=== PATIENT | female | born 1995 | race African-American/Black ===

== ENCOUNTER 2019-07-13 21:16 | Emergency (ER) | payer BC ==
[~2019-07-13] VITALS: Ht 175.3 cm; Wt 140.6 kg
[~2019-07-13 21:16] MED LIST: FLAGYL500 MG PO
[2019-07-13] MEDS ORDERED: [UNRECOGNIZED DRUG - REMARK] (21:37)
[2019-07-13] MEDS ORDERED: IBUPROFEN 600600 M1 PO (22:38)
[2019-07-13 23:30] VITALS: BP 156/93
== END 2019-07-13 23:22 | disposition home or self-care (01) ==
LOC: ER 21:16
DX: S93.491A Sprain of other ligament of right ankle, initial encounter (principal); J45.909 Unspecified asthma, uncomplicated; W01.0XXA Fall on same level from slipping, tripping and stumbling without subsequent striking against object, initial encounter; Y92.410 Unspecified street and highway as the place of occurrence of the external cause; Y93.89 Activity, other specified; Y99.8 Other external cause status

== ENCOUNTER 2020-11-19 09:38 | Emergency (ER) | payer BC ==
[~2020-11-19] VITALS: Ht 162.6 cm; Wt 136.1 kg
[~2020-11-19 09:38] MED LIST changes: +IBUPROFEN 600600 M1 PO; +[UNRECOGNIZED DRUG - REMARK]
[2020-11-19 09:45] VITALS: BP 182/99
[2020-11-19 10:14] LABS: URINE BILIRUBIN NEGATIVE (Negative); URINE BLOOD NEGATIVE (Negative); URINE CLARITY CLEAR; URINE COLOR YELLOW; URINE GLUCOSE-RANDOM* NEGATIVE (Negative); URINE KETONES NEGATIVE (Negative); URINE LEUKOCYTES-REFLEX NEGATIVE (Negative); URINE NITRITE-REFLEX NEGATIVE (Negative); URINE PROTEIN (DIPSTICK) TRACE (Negative); URINE UROBILINOGEN 0.2 E.U./dl (0.2-1.0)
[2020-11-19] MEDS ORDERED: NAPROSYN500 MG PO (10:41)
[2020-11-19] MEDS ORDERED: SENNA-DOCUSATE1 EAC1 PO (10:41)
[2020-11-19] MEDS ORDERED: NORCO 5-325 TA1 EAC2 PO (10:41)
[2020-11-19] MEDS ORDERED: MEDROLDOSEPACK PO (10:41)
[2020-11-19] MEDS ORDERED: FLEXERIL PO (10:41)
== END 2020-11-19 10:45 | disposition home or self-care (01) ==
LOC: ER 09:38
PROVIDERS: Emergency Medicine
DX: S39.012A Strain of muscle, fascia and tendon of lower back, initial encounter (principal); J45.909 Unspecified asthma, uncomplicated; F17.210 Nicotine dependence, cigarettes, uncomplicated; X50.1XXA Overexertion from prolonged static or awkward postures, initial encounter; Y93.89 Activity, other specified; Y92.89 Other specified places as the place of occurrence of the external cause; Y99.8 Other external cause status